=== PATIENT | female | born 1930 | race Caucasian/White ===

== ENCOUNTER → 2017-07-19 | Outpatient (CLI) | payer OTHER ==
[~2017-07-19] MED LIST: ALBU90OI61 INH; ASPI325EC PO; ATOR10 PO; BAYER CHEWABLE81 MG PO; CARV3.125 PO; CHOL10002 PO; ERGO400 PO; FISH OIL PO; Hair, Skin & N1 EACH PO; MULTIVITAMIN PO; SUPER BEETS PO; TIOT18 INH; VITAMIN C PO
== END | disposition home or self-care (01) ==
LOC: PLD 14:19 → LAB SHORT 14:19
DX: D48.5 Neoplasm of uncertain behavior of skin (principal)
CPT/HCPCS: 88305

== ENCOUNTER → 2017-09-11 | Outpatient (CLI) | payer OTHER ==
[~2017-09-11] MED LIST changes: -CHOL10002 PO; -ERGO400 PO; -FISH OIL PO; -SUPER BEETS PO; -VITAMIN C PO
== END | disposition home or self-care (01) ==
LOC: PLD 07:39 → LAB SHORT 07:39
DX: C44.319 Basal cell carcinoma of skin of other parts of face (principal); D23.39 Other benign neoplasm of skin of other parts of face
CPT/HCPCS: 88305

== ENCOUNTER → 2017-10-26 | Outpatient (CLI) | payer OTHER | LOC: LAB EV 14:51 → LAB SHORT 14:51 | DX: N39.0 Urinary tract infection, site not specified (principal) | CPT/HCPCS: 87086 ==

== ENCOUNTER 2018-05-24 09:12 | Day surgery (SDC) | payer OTHER ==
[~2018-05-24 09:12] MED LIST changes: +CHOL10002 PO; +ERGO400 PO; +FISH OIL PO; +SUPER BEETS PO; +VITAMIN C PO
--- NOTE | 2018-05-24 11:21 | NUR ---
RECEIVED REPORT FROM DR. COX. PT BROUGHT ON 100 NRB. WILL REASSESS NEED AFTER GETTING PATIENT SETTLED. B/P HIGH, PT REPORTS PAIN 7/[address] COX REPORTED TO ME after getting initial vs and assessment pt dozed off on ra with sats maintaining at 98%. pt encouraged to report and increased sob and pain. call light and warm blankets provided. will continue to monitor.
--- NOTE | 2018-05-24 11:26 | NUR ---
L BREAST SITE WITHOUT BANDAID, NO BLEEDING, BRUISING OR SWELLING NOTED AT THIS TIME.
--- NOTE | 2018-05-24 11:47 | NUR ---
PT PAIN IS DECREASING WITH NO CHANGE AT BIOPSY SITE. SPOKE TO [facility]. THEY ARE GOING TO GET LUNCH. RECEIVED PHONE NUMBER FOR PATIENT CHANGES.
--- NOTE | 2018-05-24 12:57 | NUR ---
REPORT FROM ADELA VÁSQUEZ. PT DROWSY, FLUSHED, MOIST, NAUSEATED, VSS. UMBILICAL INCISION DRAINING SCANT AMOUNT S/S FLUID. . PLACED BANDAID WITH GAUZE ON ALL THREE SITES.
--- NOTE | 2018-05-24 13:52 | NUR ---
Patient up to Ambulate independently. Gait steady. ASSISTED WITH SHOE PLACEMENT AND TOOK PT OUT TO VEHICLE AFTER VERBALIZED UNDERSTANDING OF INSTRUCTIONS. ALL BELONGIGNS ACCOUNTED FOR AND GIVEN BACK TO PATIENT. Discharge instructions reviewed with patient. Patient verbalizes understanding. Copy given to patient to take home. Patient States Post-Procedure ride home has been arranged. Discharged via wheelchair to private car for ride home.
--- NOTE | 2018-05-28 06:38 | NUR ---
PROCEDURE FILED FOR PURPOSES OF VERIFICATION.
== END 2018-05-24 23:02 | disposition home or self-care (01) ==
LOC: CT 09:12
DX: C50.411 Malignant neoplasm of upper-outer quadrant of right female breast (principal); C77.3 Secondary and unspecified malignant neoplasm of axilla and upper limb lymph nodes; R91.8 Other nonspecific abnormal finding of lung field
CPT/HCPCS: 32405; 71045; 77012; 88305; 88341; 88342

== ENCOUNTER → 2018-08-28 | Outpatient (CLI) | payer OTHER | END | disposition home or self-care (01) | LOC: LAB SHORT 09:45 → LAB EV 09:45 | DX: R30.0 Dysuria (principal) | CPT/HCPCS: 87086 ==

== ENCOUNTER → 2019-07-18 | Outpatient (CLI) | payer OTHER | END | disposition home or self-care (01) | LOC: LAB SHORT 09:00 → LAB EV 09:00 | DX: J18.9 Pneumonia, unspecified organism (principal); R06.00 Dyspnea, unspecified | CPT/HCPCS: 87070; 87205 ==

== ENCOUNTER 2020-03-28 20:26 | Observation (INO) | payer OTHER ==
[~2020-03-28] VITALS: Ht 149.9 cm; Wt 44.0 kg
[2020-03-28 20:49] LABS: BASOPHILS ABSOLUTE AUTO 0.06 K/mm3 (0.00-0.23); BASOPHILS PERCENT AUTO 1 % (0-2); EOSINOPHILS ABSOLUTE AUTO 0.26 K/mm3 (0.00-0.68); EOSINOPHILS PERCENT AUTO 3 % (0-6); Hematocrit 40.7 % (33.0-51.0); Hemoglobin 13.1 g/dL (11.5-16.0); IMMATURE GRAN ABSOLUTE AUTO 0.04 K/mm3 (0.00-0.10); IMMATURE GRAN PERCENT AUTO 0 % (0-1); LYMPHOCYTES ABSOLUTE AUTO 1.16 K/mm3 (0.84-5.20); LYMPHOCYTES PERCENT AUTO 13 % (21-46); MONOCYTES ABSOLUTE AUTO 0.92 K/mm3 (0.16-1.47); MONOCYTES PERCENT AUTO 10 % (4-13); Mean Corpuscular HGB Conc 32.2 g/dL (31.5-36.5); Mean Corpuscular Volume 96 fL (80-100); NEUTROPHILS ABSOLUTE AUTO 6.58 K/mm3 (1.96-9.15); NEUTROPHILS PERCENT AUTO 73 % (41-73); Platelet Count 189 K/mm3 (150-400); RDW Coefficient Variation 13.9 % (11.7-14.2); RDW Standard Deviation 49.1 fL (35.1-46.3); Red Blood Cell Count 4.22 M/mm3 (3.80-5.20); White Blood Cell Count 9.02 K/mm3 (4.00-11.30)
[2020-03-28 20:58] LABS: Anion Gap 3 mmol/L (6-16); Blood Urea Nitrogen 15 mg/dL (8-24); Bun/Creatinine Ratio 21.1 (12.0-20.0); CO2, Blood 33 mmol/L (21-32); Calcium, Blood 8.7 mg/dL (8.5-10.1); Chloride, Blood 105 mmol/L (98-108); Creatinine, Blood 0.71 mg/dL (0.40-1.00); Ethanol (Alcohol), Blood, Med <3 mg/dL; Glomerular Filtration Rate >60 (60-); Glucose, Blood 106 mg/dL (70-99); Potassium, Blood 4.3 mmol/L (3.5-5.5); Sodium, Blood 141 mmol/L (136-145)
[2020-03-28 21:57] LABS: Source, Urine Catheter
[2020-03-28 21:59] LABS: Bilirubin, Urine Neg (Neg); Blood, Urine 2+ (Neg); Glucose Qualitative, Urine Neg (Neg); Ketones, Urine Neg (Neg); Leukocyte Esterase, Urine Neg (Neg); Nitrite, Urine Neg (Neg); Protein, Urine Neg (Neg); Urobilinogen, Urine NORM (Normal)
[2020-03-28 22:01] LABS: Appearance, Urine Clear (Clear); Color, Urine Yellow (P-Yellow)
[2020-03-28 22:04] LABS: White Blood Cells, Urine 0-2 /hpf (0-5)
[2020-03-28 22:05] LABS: Amorphous Light (0-Heavy); Bacteria Few /hpf; Squamous Epithelial Cells Not Seen /hpf (Few)
--- NOTE | 2020-03-29 06:28 | NUR ---
PT NEW ADMIT AT 0130 VIA STRETCHER. PT IS A/O X4 WITH SLURRED SPEECH. RIGHT SIDE FACIAL DROOP WITH NOTICIBLE RIGHT SIDED WEAKNESS. R PUPIL IS ALSO SLUGGISH TO LIGHT. PT DENIES PAIN AND SOB. SLEPT WELL TONIGHT. PT UNABLE TO RAISE UP RIGHT ARM, ABLE TO RAISE R LEG, HOWEVER, MUCH WEAKER THAN L LEG. CALL LIGHT WITHIN REACH, BED ALARM IN PLACE, NS CURRENTLY RUNNING AT 75ML/HR. CURRENTLY RESTING WITH EYES CLOSED. WILL GIVE REPORT TO ONCOMING RN.
[2020-03-29 08:20] LABS: Hematocrit 38.5 % (33.0-51.0); Hemoglobin 12.5 g/dL (11.5-16.0); Mean Corpuscular HGB 31.1 pg (26.0-34.0); Mean Corpuscular HGB Conc 32.5 g/dL (31.5-36.5); Mean Corpuscular Volume 96 fL (80-100); Mean Platelet Volume 8.6 fL (9.1-12.4); Platelet Count 165 K/mm3 (150-400); RDW Coefficient Variation 13.8 % (11.7-14.2); RDW Standard Deviation 49.1 fL (35.1-46.3); Red Blood Cell Count 4.02 M/mm3 (3.80-5.20); White Blood Cell Count 8.46 K/mm3 (4.00-11.30)
[2020-03-29 08:32] LABS: Anion Gap 3 mmol/L (6-16); Blood Urea Nitrogen 13 mg/dL (8-24); Bun/Creatinine Ratio 22.5 (12.0-20.0); CO2, Blood 30 mmol/L (21-32); Calcium, Blood 8.4 mg/dL (8.5-10.1); Chloride, Blood 110 mmol/L (98-108); Creatinine, Blood 0.58 mg/dL (0.40-1.00); Glomerular Filtration Rate >60 (60-); Glucose, Blood 85 mg/dL (70-99); Potassium, Blood 4.1 mmol/L (3.5-5.5); Sodium, Blood 143 mmol/L (136-145)
[2020-03-29] MEDS ORDERED: AMLO10 PO (13:01)
[2020-03-29] MEDS ORDERED: ASPI81CH PO (13:09)
--- NOTE | 2020-03-29 15:43 | NUR ---
DISCHARGE DISCHARGE INSTRUCTIONS, MEDICATION LIST AND FOLLOW UP APPOINTMENTS REVIEWED WITH PT. QUESTIONS/CONCERNS ANSWERED. PT VERBALLY INDICATED UNDERSTANDING OF ALL INSTRUCTIONS RECEIVED. T/C TO DR LONG REGARDING PT'S BP OF 155/63 AFTER RECEIVING 10MG OF NORVASC. PT SBP BELOW 160, OK TO DISCHARGE.
== END 2020-03-29 15:42 | disposition home or self-care (01) ==
LOC: ER 20:26 → MEDS 20:27
PROVIDERS: Student in an Organized Health Care Education/Training Program; ADMIT Internal Medicine
DX: I63.9 Cerebral infarction, unspecified (principal); I10 Essential (primary) hypertension; I69.351 Hemiplegia and hemiparesis following cerebral infarction affecting right dominant side; J44.9 Chronic obstructive pulmonary disease, unspecified; F17.200 Nicotine dependence, unspecified, uncomplicated; Z88.5 Allergy status to narcotic agent; Z88.0 Allergy status to penicillin; Z88.8 Allergy status to other drugs, medicaments and biological substances; Z79.899 Other long term (current) drug therapy
CPT/HCPCS: 36415; 51702; 70450; 71045; 80048; 81001; 83718; 85025; 85027; 93005; 93010; 93880; A9270-GY; G0480; J7030

== ENCOUNTER → 2020-09-30 | Outpatient (CLI) | payer OTHER ==
[~2020-09-30] MED LIST changes: +AMLO10 PO; +ASPI81CH PO
== END | disposition home or self-care (01) ==
LOC: LAB 11:07 → LAB SHORT 11:07
DX: D48.5 Neoplasm of uncertain behavior of skin (principal)
CPT/HCPCS: 88304; 88305